=== PATIENT | female | born 1995 | race African-American/Black ===

== ENCOUNTER 2017-05-19 18:19 | Emergency (ER) | payer MEDICAID ==
[~2017-05-19] VITALS: Ht 175.3 cm; Wt 65.8 kg
[2017-05-19] MEDS ORDERED: UNOBMED (18:31)
[2017-05-19 18:52] VITALS: BP 140/110
[2017-05-19 19:21] LABS: APPEARANCE,URINE CLEAR; BILIRUBIN, URINE NEGATIVE (NEGATIVE); GLUCOSE, URINE (UA) NEGATIVE (NEGATIVE); KETONES,URINE NEGATIVE (NEGATIVE); LEUKOCYTE ESTERASE ,URINE 1+ (NEGATIVE); NITRITE,URINE NEGATIVE (NEGATIVE); PH,URINE 5 (4.5-8.0); PROTEIN,URINE NEGATIVE (NEGATIVE); UROBILINOGEN,URINE 1 MG/DL (0.0-1.0)
[2017-05-19 19:24] LABS: COLOR,URINE YELLOW
--- NOTE | 2017-05-19 22:57 | Emergency Room Report ---
History of Present Illness General Chief Complaint: Overdose Present Illness HPI 21 YO Pt. presents to the ED c/o anxiety after taking a pill from stranger and drinking alcohol. business attorney called 911 according to EMS report due to pt. having erratic behavior. She denies pain at this time she states that she feels fine. Patient states she does not want to be evaluated wants to leave. History of present illness and ROS is limited due to poor patient cooperation. Allergies: Coded Allergies: UNABLE TO ASSESS (Unverified , 05/19/17) Confused Patient History Limited by: other - poor pt. cooperation Past Surgical History: unable to obtain Pertinent Family History: unable to obtain Social History: Reports: alcohol use, drug use Last Menstrual Period: Unk Now: No Reviewed Nursing Documentation: PMH: Agreed, PSxH: Agreed Nursing Documentation-PMH Past Medical History Deferred: Pt Cognitively Impaired Review of Systems All Other Systems: limited - due to poor pt. cooperation. Physical Exam Vital Signs Date Time Temp Pulse Resp B/P (MAP) Pulse Ox O2 Delivery O2 Flow Rate FiO2 05/19/17 18:26 98.3 140 18 140/110 98 Room Air 98.2 Sp02 EP Interpretation: reviewed, normal General Appearance: no apparent distress, alert, GCS 15, non-toxic Head: normocephalic, atraumatic Eyes: bilateral eye normal inspection, bilateral eye PERRL ENT: hearing grossly normal, normal voice Neck: full range of motion Respiratory: chest non-tender, lungs clear, normal breath sounds, speaking full sentences Cardiovascular #1: regular rate, rhythm Gastrointestinal: normal bowel sounds, non tender, soft Musculoskeletal: back normal, gait/station normal, normal range of motion Neurologic: alert, oriented x3, responsive, motor strength/tone normal, sensory intact, normal gait, speech normal - rapid but coherent and clear, grossly normal Psychiatric: judgement/insight normal, anxious Skin: normal color, no rash, warm/dry, well hydrated Medical Decision Making PA Attestation Dr. cardenas is my supervising Physician whom patient management has been discussed with. Diagnostic Impression: Primary Impression: Drug abuse ER Course 21 YO Pt. presents to the ED c/o anxiety after taking a pill from stranger and drinking alcohol. business attorney called 911 according to EMS report due to pt. having erratic behavior. She denies pain at this time she states that she feels fine. Patient states she does not want to be evaluated wants to leave. History of present illness and ROS is limited due to poor patient cooperation. Pt is hyperactive, and has a very anxious and restless affect. Ddx considered but are not limited to OD, SI/HI, psychosis, UTI, intoxication Vital signs: are WNL, pt. is afebrile H&PE are most consistent with substance use. Pt is A & O x 3 - no evidence of acute psychosis or acute danger to self/others ORDERS: -UA: negative for infection see results attached. -UDS: POSITIVE for PCP, Amphetamines, Cocaine and THC ED INTERVENTIONS: - Pt. declined Ativan Pt. Refused treatment,and wanted to leave. Pt. Eloped prior to return of Urine results. Labs Test 05/19/17 18:45 Urine Color Yellow Urine Appearance Clear Urine pH 5 (4.5-8.0) Urine Specific [place] 1.020 (1.005-1.035) Urine Protein Negative (NEGATIVE) Urine Glucose (UA) Negative (NEGATIVE) Urine Ketones Negative (NEGATIVE) Urine Occult Blood 1+ (NEGATIVE) Urine Nitrite Negative (NEGATIVE) Urine Bilirubin Negative (NEGATIVE) Urine Urobilinogen 1 MG/DL (0.0-1.0) Urine Leukocyte Esterase 1+ (NEGATIVE) Urine RBC 2-4 /HPF (0 - 2) Urine WBC 2-4 /HPF (0 - 2) Urine Squamous Epithelial Cells Few /LPF (NONE/OCC) Urine Bacteria Occasional /HPF (NONE) Urine HCG, Qualitative Negative Urine Opiates Screen Negative (NEGATIVE) Urine Barbiturates Screen Negative (NEGATIVE) Phencyclidine (PCP) Screen Positive (NEGATIVE) Urine Amphetamines Screen Positive (NEGATIVE) Urine Benzodiazepines Screen Negative (NEGATIVE) Urine Cocaine Screen Positive (NEGATIVE) Urine Marijuana (THC) Screen Positive (NEGATIVE) Last Vital Signs Date Time Temp Pulse Resp B/P (MAP) Pulse Ox O2 Delivery O2 Flow Rate FiO2 05/19/17 18:52 98.3 18 140/110 98 Room Air 98.2 05/19/17 18:26 140 Disposition: ELOPED Condition: Stable Referrals: NON PHYSICIAN (PCP) Rosanne Moe May 19, 2017 22:57
== END 2017-05-19 18:59 | disposition home or self-care (01) ==
LOC: EDBD 18:19 → EMR 18:52
DX: F19.10 Other psychoactive substance abuse, uncomplicated (principal); F41.9 Anxiety disorder, unspecified
CPT/HCPCS: 80307; 81003; 81025; 99283